=== PATIENT | female | born 1950 | race Caucasian/White ===

== ENCOUNTER 2021-05-01 17:44 | Emergency (ER) | payer MEDICARE ==
[~2021-05-01] VITALS: Ht 160 cm; Wt 50.0 kg
[2021-05-01 17:44] VITALS: BP 125/63
[2021-05-01] MEDS ORDERED: IV NORMAL SALINE 1000ML BAG 1,000 ML IV SCH (18:15)
[2021-05-01] MEDS ORDERED: ONDANSETRON ODT 4 MG TAB.RAPDIS. PO ONE (18:30)
[2021-05-01 18:44] LABS: BASO # 0.1 x10^3/uL (0.0-0.2); BASO % 1 % (0-3); EOS # 0.1 x10^3/uL (0.0-0.7); EOS % 1 % (0-3); HEMATOCRIT 37.6 % (36.0-47.0); HEMOGLOBIN 12.6 g/dL (12.0-15.5); LYMPH # 1.1 x10^3/uL (1.0-4.8); LYMPH % 19 % (24-48); MEAN CORPUSCULAR HEMOGLOBIN 31 pg (25-35); MEAN CORPUSCULAR HGB CONC 34 g/dL (31-37); MEAN CORPUSCULAR VOLUME 94 fL (79-100); MONO # 0.4 x10^3/uL (0.0-1.1); MONO % 8 % (0-9); NEUT # 4.1 x10^3/uL (1.8-7.7); NEUT % 72 % (31-73); PLATELET COUNT 189 x10^3/uL (140-400); RED BLOOD COUNT 4.01 x10^6/uL (3.50-5.40); WHITE BLOOD COUNT 5.7 x10^3/uL (4.0-11.0)
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
[2021-05-01 18:55] LABS: CALCIUM 8.6 mg/dL (8.5-10.1); CREATININE 0.7 mg/dL (0.6-1.0); POTASSIUM 3.4 mmol/L (3.5-5.1)
[2021-05-01 19:00] LABS: ALBUMIN 3.1 g/dL (3.4-5.0); ALBUMIN/GLOBULIN RATIO 0.9 (1.0-1.7); TOTAL BILIRUBIN 0.2 mg/dL (0.2-1.0); TOTAL PROTEIN 6.5 g/dL (6.4-8.2)
[2021-05-01 19:47] LABS: BILIRUBIN,URINE NEGATIVE (NEG); CLARITY,URINE CLEAR; COLOR,URINE YELLOW; NITRITE,URINE POSITIVE (NEG); PROTEIN,URINE 30 mg/dL (NEG-TRACE)
[2021-05-01 19:58] LABS: HYALINE CASTS, URINE MODERATE /HPF
[2021-05-01 19:59] LABS: BACTERIA,URINE MANY /HPF (0-FEW)
[2021-05-01] MEDS ORDERED: NITR100C62 PO (20:03)
--- NOTE | 2021-05-02 00:28 | EKG ---
[facility] [address] [place] [address] Test Date: 2021-05-01 Test Time: 18:19:53 Pat Name: DANICA VIDES Department: Room: Gender: F Accounts Receivable Clerk: : 1950 Requested By: HAYDEE CLARK Order Number: [id number] Reading MD: Measurements Intervals [place] Rate: 69 P: 67 MI: 172 QRS: 48 QRSD: 94 T: 43 QT: 438 QTc: 476 Interpretive Statements SINUS RHYTHM PROLONGED QT BORDERLINE ECG RI6.02 No previous ECG available for comparison
== END 2021-05-01 20:25 | disposition home or self-care (01) ==
LOC: ER 17:44
DX: N39.0 Urinary tract infection, site not specified (principal); F17.200 Nicotine dependence, unspecified, uncomplicated; Z98.51 Tubal ligation status; Z91.013 Allergy to seafood
CPT/HCPCS: 36415; 80053; 81001; 83690; 83735; 84484; 85025; 87086; 93005; 96360; 96361; 99283; J7030

== ENCOUNTER → 2021-06-28 | Outpatient (CLI) | payer MEDICARE ==
[~2021-06-28] MED LIST: ACET500T33 PO; ASPI-630 PO; GABA-585 PO; NITR100C62 PO; TRAM50TA PO
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
== END ==
LOC: KCIC CT 08:17
PROVIDERS: ATTEND Podiatrist
DX: S82.851A Displaced trimalleolar fracture of right lower leg, initial encounter for closed fracture (principal); S82.451A Displaced comminuted fracture of shaft of right fibula, initial encounter for closed fracture; S82.51XA Displaced fracture of medial malleolus of right tibia, initial encounter for closed fracture; M79.89 Other specified soft tissue disorders; X58.XXXA Exposure to other specified factors, initial encounter; Y93.89 Activity, other specified; Y92.89 Other specified places as the place of occurrence of the external cause; Y99.8 Other external cause status
CPT/HCPCS: 73700

== ENCOUNTER → 2021-06-29 | Outpatient (CLI) | payer MEDICARE ==
[~2021-06-29] MED LIST changes: -ACET500T33 PO; -ASPI-630 PO; -GABA-585 PO; -TRAM50TA PO
== END ==
LOC: LAB 12:13
PROVIDERS: ATTEND Physician Assistant
DX: Z01.818 Encounter for other preprocedural examination (principal); S82.851D Displaced trimalleolar fracture of right lower leg, subsequent encounter for closed fracture with routine healing; X58.XXXD Exposure to other specified factors, subsequent encounter
CPT/HCPCS: 36415; 82306; 82310; 84134

== ENCOUNTER → 2021-07-04 | Outpatient (CLI) | payer MEDICARE, OTHER ==
[~2021-07-04] MED LIST changes: +ACET500T33 PO; +ASPI-630 PO; +GABA-585 PO; +TRAM50TA PO
== END ==
LOC: LAB 13:06
PROVIDERS: ATTEND Podiatrist
DX: Z01.812 Encounter for preprocedural laboratory examination (principal); S82.851D Displaced trimalleolar fracture of right lower leg, subsequent encounter for closed fracture with routine healing; Z20.822 Contact with and (suspected) exposure to COVID-19; X58.XXXD Exposure to other specified factors, subsequent encounter
CPT/HCPCS: U0003; U0005

== ENCOUNTER 2021-07-06 06:45 | Day surgery (SDC) | payer MEDICARE ==
[~2021-07-06] VITALS: Ht 160 cm; Wt 49.9 kg
[~2021-07-06 06:45] MED LIST changes: -ACET500T33 PO; -ASPI-630 PO; +DEXAMETHASONE SOD PHOS 4 MG/ML VIAL ONE; -GABA-585 PO; +HYDROmorphone 2 MG/ML VIAL IVP PRN; +IV RINGERS,LACTATED 1000ML 1,000 ML IV SCH; +LIDOCAINE 2% PF 5 ML VIAL. ONE; +MORPHINE SULFATE 2 MG/ML INJ. IVP PRN; +ONDANSETRON PF 4 MG/2 ML VIAL. ONE; +PROCHLORPERAZINE 10 MG/2 ML VIAL. IVP PRN; +PROPOFOL 10 MG/ML (20ML) VIAL. IV ONE; -TRAM50TA PO; +ceFAZolin SODIUM IV Push 1 GM VIAL. IVP PRN; +fentaNYL PF VIAL 100 MCG/2 ML VIAL IVP PRN
[2021-07-06] MEDS ORDERED: BUPIVACAINE MPF 0.25% 30 ML VIAL. ONE (07:03)
[2021-07-06 07:10] VITALS: BP 174/74
[2021-07-06] MEDS ORDERED: ASPI-630 PO (07:16)
[2021-07-06] MEDS ORDERED: ACET500T33 PO (07:16)
[2021-07-06] MEDS ORDERED: GABA-585 PO (07:16)
[2021-07-06] MEDS ORDERED: TRAM50TA PO (07:16)
[2021-07-06] MEDS ORDERED: ROPIVacaine 0.5% PF 20 ML VIAL. ONE (07:19)
[2021-07-06] MEDS ORDERED: ROCURONIUM 50 MG/5 ML VIAL. ONE (07:36)
[2021-07-06] MEDS ORDERED: fentaNYL PF VIAL 100 MCG/2 ML VIAL ONE ×3 (07:37→12:24)
[2021-07-06] MEDS ORDERED: IV NORMAL SALINE 1000ML BAG 1,000 ML IV SCH (08:00)
[2021-07-06] MEDS ORDERED: MORPHINE SULFATE 2 MG/ML INJ. IVP PRN (08:00)
[2021-07-06] MEDS ORDERED: HYDROmorphone 2 MG/ML VIAL IV PRN (08:00)
[2021-07-06] MEDS ORDERED: DEXTROSE 50% 25 GM / 50ML DISP.SYRIN. IV PRN (08:00)
[2021-07-06] MEDS ORDERED: ACETAMINOPHEN 325 MG TABLET. PO PRN (08:00)
[2021-07-06] MEDS ORDERED: SENNOSIDES 8.6 MG TABLET PO PRN (08:00)
[2021-07-06] MEDS ORDERED: MORPHINE SULFATE 2 MG/ML INJ. IV PRN (08:00)
[2021-07-06] MEDS ORDERED: PROCHLORPERAZINE 10 MG/2 ML VIAL. IV PRN (08:00)
[2021-07-06] MEDS ORDERED: IPRATRPIUM/ALBUTEROL 0.5/2.5MG 3 ML NEBU. NEB SCH (08:00)
[2021-07-06] MEDS ORDERED: ONDANSETRON PF 4 MG/2 ML VIAL. IVP PRN (08:00)
[2021-07-06] MEDS ORDERED: DOCUSATE SODIUM 100 MG CAPSULE. PO PRN (08:00)
[2021-07-06] MEDS ORDERED: LORazepam 0.5 MG TABLET PO PRN (08:00)
[2021-07-06] MEDS ORDERED: oxyCODONE/APAP 5/325 1 TAB TABLET PO PRN ×2 (08:00)
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
[2021-07-06] MEDS ORDERED: SEVOFLURANE > 120 MINUTES. IH ONE (09:07)
[2021-07-06] MEDS ORDERED: PHENYLEPHRINE in 0.9% NACL PF 1 MG/10 ML SYRINGE. IV ONE (09:43)
[2021-07-06] MEDS ORDERED: VANCOMYCIN 1 GM VIAL. ONE (10:09)
[2021-07-06] MEDS ORDERED: NEOSTIGMINE METHYLSULFATE 5 MG/5 ML SYRINGE. ONE (10:19)
[2021-07-06] MEDS ORDERED: GLYCOPYRROLATE 1 MG/5 ML VIAL. ONE (10:19)
[2021-07-06] MEDS ORDERED: HYDROmorphone 2 MG/ML VIAL ONE (10:42)
--- NOTE | 2021-07-06 11:11 | PDOC4 ---
OPERATIVE NOTE Date: Date: Jul 06, 2021 Pre-Op Diagnosis: Closed trimalleolar ankle fracture, right Post-Op Diagnosis: Same as above Procedure Performed: Right ankle trimalleolar ORIF Surgeon: Humberto Mann DPM Anesthesia Type: General Blood Loss: 20 cc Specimans Obtained: None Findings: Proximally displaced Volkman's fracture, involving at least to 25% of the syndesmotic joint. There was a comminuted distal fibular fracture with a primary fracture line extending posteriorly and an anterior Mars fragment. Anterior collicular medial malleolar fracture with an oblique fracture line extending proximally. Soft bone throughout the ankle fractures. Attenuated skin without cyanotic/necrotic changes/blisters and inadequate adipose tissue around ankle joint. Complications: None Operative Note: Under mild sedation, patient was brought into the operating room and placed on an operating table in a supine position. Following a formal timeout, patient's identity, procedure and procedure sites were confirmed. Following IV prophylactic antibiotics, general anesthesia, a well-padded thigh tourniquet was placed to the right lower extremity. Then the right lower extremity was then scrubbed, prepped and draped using standard aseptic techniques. An Esmarch was used to exsanguinate the right foot and ankle and tourniquet was inflated to 250 millimercury. The attention was directed to the right ankle where a curvilinear incision was carried out between the lateral border of the Achilles and the posterior border of the fibula. Great care was taken to identify and retract all the neurovascular bundles including the sural nerve. All bleeders were cauterized as necessary. Using sharp and blunt dissection, incision was taken deep to the retinaculum layer which was then incised to mobilize the peroneal tendons without violating the tendon sheath. The FHL was elevated off the posterior syndesmotic membrane with blunt dissection and using an elevator. Then the periosteum to the Volkman's fracture was incised and elevated off the fracture site to visualize the fracture characteristics. Intraoperatively, we found the Volkman's fracture proximally displaced with preserved PITFL and syndesmotic membrane. The hematoma was evacuated and all interposed periosteum was removed from the fracture site. The wound was irrigated with copious saline then. At this time, the fracture was reduced with a bone clamp. Intraoperative x-ray remarked adequate fracture reduction and anglican of the plafond articula tion. Then a [place] 7-hole posterior tibial plate was placed and affixed to the distal tibia with 3.5 mm cortical screws using standard AO technique. Then the attention was directed to the distal fibular where the fracture was noted multi fragmented. There was a primary fracture line extending posteriorly and proximally and an anterior Mars fracture fragment. The fracture site was reduced with 2 bone clamps with remarked anglican of the fibular length and mortise alignment. The reduction was maintained with a posterior fibular plate and a lateral fibular plate to augment the construct especially given the soft bone quality and multi fragmented in nature. 3.5 millimeter screws were used to affix the plates to the fibula using standard AO techniques. Intraoperative x- ray noted satisfactory hardware position, length and placement. Passive ankle range of motion was insignificant for peroneal tendon irritation or impingement at the posterior fibular plate site. Then, the attention was directed to the medial right ankle where a standard linear incision was performed over the anterior colliculus. Incision was carried deep using sharp and blunt dissection down to level of periosteum which was then incised. Care was taken to retract all the neurovascular bundles and all bleeders were cauterized as needed. Fracture was identified at the anterior margin of the anterior colliculus and an oblique fashion extending proximally . All interposed periosteum was reflected and resected. Fracture site was reduced with a bone clamp. Next two guidewires for 4.0 mm partially-threaded screws were used to affix and stabilize the fracture fragment from an oblique A to P fashion given the fracture pattern. Next using standard AO technique, 2 4.0 partially-threaded screws were placed over the guidewires. Final imaging were taken to verify position and length of the hardware which appeared adequate and ankle mortise was anatomical. Intraoperative syndesmotic stress test was performed which remarked stability across the tib-fib joint space without diastases or at the medial gutter space. The surgical sites were irrigated with copious saline solution. 0.5 g of vancomycin powder were applied to the wound bed given patient's high risk of infection attenuated skin. The lateral peroneal retinaculum was repaired with 3-0 Vicryl. The skin was closed in layers with 4 Monocryl 4-0 nylon and nancy. Then the surgical sites were anesthetized with 10 cc of 0.25% Marcaine plain. The sites were dressed with Betadine soaked Adaptic, 4 x 4, ABD. The right lower extremity was then immobilized in a modified Wright compression splint with ankle held near 90 degrees. Then the tourniquet was deflated and adequate digital perfusion was noted. Patient tolerated the procedure and anesthesia well and then transferred to PACU for continuous recovery. Pending right ankle 3 view x-ray. HUMBERTO MANN DPM Jul 06, 2021 11:11
[2021-07-06] MEDS ORDERED: ACETAMINOPHEN 325 MG TABLET. PO ONE (11:15)
[2021-07-06] MEDS ORDERED: GABAPENTIN 100 MG CAPSULE. PO ONE (11:15)
[2021-07-06] MEDS ORDERED: oxyCODONE/APAP 5/325 1 TAB TABLET PO ONE (11:15)
[2021-07-06] MEDS ORDERED: PROCHLORPERAZINE 10 MG/2 ML VIAL. ONE (12:04)
[2021-07-06] MEDS: fentaNYL PF VIAL 100 MCG/2 ML VIAL IVP PRN ×2 (12:25→12:47)
[2021-07-06 13:10] VITALS: BP 132/68
[2021-07-06] MEDS ORDERED: HYDROcodone/APAP 5/325MG 1 TAB TABLET PO ONE (13:15)
--- NOTE | 2021-07-06 17:19 | RAD ---
XR EXAM OF ANKLE_RIGHT 3VIEWS Clinical indications: Reason: post-op follow-up, pacu / Spl. Instructions: / History: COMPARISON: June 24, 2021. FINDINGS/ IMPRESSION: Again seen is a trimalleolar fracture of the right ankle with has been reduced and fixa priscilla with metallic surgical hardware. Overlying cast obscures fine bony detail. Alignment is otherwise anatomic and the mortise ankle joint is reduced. No lytic process is seen. Electronically signed by: Timmy Almazan MD (07/06/2021 5:17 PM) [id number]
== END 2021-07-06 13:38 | disposition home or self-care (01) ==
LOC: SURG 06:45
PROVIDERS: ATTEND Podiatrist
DX: S82.851A Displaced trimalleolar fracture of right lower leg, initial encounter for closed fracture (principal); F17.210 Nicotine dependence, cigarettes, uncomplicated; Z79.82 Long term (current) use of aspirin; Z79.899 Other long term (current) drug therapy; Z91.013 Allergy to seafood; Z98.890 Other specified postprocedural states; X58.XXXA Exposure to other specified factors, initial encounter; Y93.89 Activity, other specified; Y92.89 Other specified places as the place of occurrence of the external cause; Y99.8 Other external cause status
CPT/HCPCS: 27822; 73610; A4930; A6223; A6253; A6402; A6449; A6450; C1713; J0690; J0780; J1100; J1170; J2270; J2370; J2405; J2704; J2710; J2795; J3010; J3370; J3490; 76000; A4657; A6455

== ENCOUNTER → 2021-10-06 | Outpatient (CLI) | payer MEDICARE ==
--- NOTE | 2021-09-29 18:20 | RAD ---
EXAM: 3 views of the right ankle DATE: 09/29/2021 1:30 PM INDICATION: Reason: S/P ORIF RT ANKLE 07/06/21 / Spl. Instructions: / History: COMPARISON: 09/01/2021 FINDINGS: Changes of trimalleolar ankle fracture post reduction and fixation without definite hardware complica tion, in stable alignment. Fracture planes are less conspicuous suggesting progressive healing. Diffu se decreased bone mineral density. IMPRESSION: 1. Progressively healing trimalleolar right ankle fracture post reduction and fixation, in stable al ignment. 2. Marked osteopenia, likely on the basis of disuse. Electronically signed by: Christopher Enamorado MD (09/29/2021 6:18 PM) [id number]
[~2021-10-06] MED LIST changes: +ACET500T33 PO; +ASPI-630 PO; -DEXAMETHASONE SOD PHOS 4 MG/ML VIAL ONE; +GABA-585 PO; -HYDROmorphone 2 MG/ML VIAL IVP PRN; -IV RINGERS,LACTATED 1000ML 1,000 ML IV SCH; -LIDOCAINE 2% PF 5 ML VIAL. ONE; -MORPHINE SULFATE 2 MG/ML INJ. IVP PRN; -ONDANSETRON PF 4 MG/2 ML VIAL. ONE; -PROCHLORPERAZINE 10 MG/2 ML VIAL. IVP PRN; -PROPOFOL 10 MG/ML (20ML) VIAL. IV ONE; +TRAM50TA PO; -ceFAZolin SODIUM IV Push 1 GM VIAL. IVP PRN; -fentaNYL PF VIAL 100 MCG/2 ML VIAL IVP PRN
== END ==
LOC: PMGORTHO 15:15
PROVIDERS: ATTEND Podiatrist
DX: S91.009A Unspecified open wound, unspecified ankle, initial encounter (principal); X99.2XXA Assault by sword or dagger, initial encounter; Y93.89 Activity, other specified; Y92.89 Other specified places as the place of occurrence of the external cause; Y99.8 Other external cause status
CPT/HCPCS: 87070; 87077; 87186

== ENCOUNTER → 2021-12-05 | Outpatient (CLI) | payer MEDICARE | LOC: LAB 15:13 | PROVIDERS: ATTEND Podiatrist | DX: M25.571 Pain in right ankle and joints of right foot (principal) | CPT/HCPCS: 36415; 85651; 86140; 87070; 87071 ==

== ENCOUNTER → 2021-12-13 | Outpatient (CLI) | payer MEDICARE ==
--- NOTE | 2021-12-14 09:35 | RAD ---
US RIGHT LOWER EXTREMITY ARTERIAL DUPLEX EVAL Indication: Reason: right distal ankle ulcer / Spl. Instructions: / History: . Pain Comparison: None. Procedure: Real-time grayscale, color flow Doppler, and Doppler spectral waveform analysis of the art erial system of the lower extremity is performed. Findings: Right lower extremity: Triphasic waveform within the proximal right lower extremity. Monophasic wavef orm within the posterior tibial, peroneal, anterior tibial and dorsalis pedis arteries. Mildly elevat ed velocity within the right common femoral artery measures 150 cm/s. Mildly elevated velocity within the proximal and mid superficial femoral artery measures 175 cm/s and 197 cm/s. Moderately elevated velocity within the distal superficial femoral artery measures 253 cm/s. Mildly elevated velocity wit hin the posterior tibial artery measures 154 cm/s. Moderate atheromatous plaque. IMPRESSION: 1. Moderately elevated velocity within the distal superficial femoral artery, may indicate 50-75 % s tenosis. 2. Mildly elevated velocity within the right common femoral and proximal superficial femoral arterie s, may indicate 30-49% stenosis. 3. Monophasic waveforms within the distal right lower extremity, may indicate proximal stenosis. 4. Moderate atheromatous plaque. Electronically signed by: Georges Waller DO (12/14/2021 9:32 AM) [id number]
== END ==
LOC: US 15:31
PROVIDERS: ATTEND Podiatrist
DX: I70.201 Unspecified atherosclerosis of native arteries of extremities, right leg (principal); L97.211 Non-pressure chronic ulcer of right calf limited to breakdown of skin
CPT/HCPCS: 93926